=== PATIENT | male | born 2005 | race Caucasian/White ===

== ENCOUNTER 2025-02-23 13:13 | Emergency (ER) | payer MEDICAID, SELFPAY ==
[2025-02-23 13:15] VITALS: BP 134/77
[2025-02-23 14:00] VITALS: BP 122/85
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
[2025-02-23] MEDS: MOTRIN 600 MG PO (14:41)
[2025-02-23 17:30] VITALS: BP 118/67
== END 2025-02-23 17:37 | disposition home or self-care (01) ==
LOC: EMR 13:13
PROVIDERS: EMERGENCY PHYSICIAN Emergency Medicine
DX: S82.002A Unspecified fracture of left patella, initial encounter for closed fracture (principal); Y04.0XXA Assault by unarmed brawl or fight, initial encounter; Y92.199 Unspecified place in other specified residential institution as the place of occurrence of the external cause
CPT/HCPCS: 99283; 29505; 73564